=== PATIENT | female | born 1980 | race Caucasian/White ===

== ENCOUNTER 2017-08-06 08:57 | Emergency (ER) | payer OTHER ==
[~2017-08-06] VITALS: Ht 160 cm; Wt 71.5 kg
[~2017-08-06 08:57] MED LIST: CALC300T4 PO; LEVO500T10 PO; PERCOCET PO
[2017-08-06 08:59] VITALS: Ht 160 cm; Wt 71.5 kg
[2017-08-06] MEDS ORDERED: METHYLPRED. NA SUCC 1,000 MG in DEXTROSE 5% 50 ML IVPB ONE (11:00)
[2017-08-06] MEDS ORDERED: KETOROLAC 30 MG INJ IV STA (11:08)
--- NOTE | 2017-08-06 11:46 | ERD ---
ER Documentation Chief Complaint Chief Complaint numbness in bilat legs x 2 days, sent by PCP for steroid shot HX MS HPI 37-year-old female with a history of multiple sclerosis presents with numbness and tingling to her legs that started 2-3 days ago. Her neurologist who is Dr. Malik Rhoades has intermittent for Solu-Medrol, for an acute flare. The patient presents tingling to her left foot to her left knee, also presents with numbness to her groin. She states she also has photophobia, diffuse frontal headache. She has not had any vision changes, patient denies saddle anesthesia loss of bowel bladder function. He would like for her to have home care to get Solu-Medrol given a daily but was not able to arrange this given her limitations due to insurance. ROS All systems reviewed and are negative except as per history of present illness. Medications Home Meds Active Scripts Levofloxacin* (Levofloxacin*) 500 Mg Tablet, 500 MG PO DAILY for UTI, #7 TAB Prov:ANA CHRIS MD 09/06/16 Oxycodone Hcl/Acetaminophen (Percocet) 1 Tab Tab, 2 TAB PO Q4H Y for PAIN LEVEL 6-10, #30 TAB 0 Refills Prov:VADIM PEREYRA MD 07/16/16 Reported Medications Calcium Carbonate* (Tums X-Str) 300 Mg Tab.chew, 300 MG PO for HEARTBURN, TAB.CHEW 07/13/16 Allergies Allergies: Coded Allergies: No Known Allergy (Unverified , 08/06/17) PMhx/Soc Medical and Surgical Hx: pt denies Surgical Hx History of Surgery: No Anesthesia Reaction: No Hx Neurological Disorder: Yes (MS) Hx Respiratory Disorders: No Hx Cardiac Disorders: No Hx Psychiatric Problems: No Hx Miscellaneous Medical Probl: Yes Hx Alcohol Use: No Hx Substance Use: No Hx Tobacco Use: No Smoking Status: Never smoker Physical Exam Vitals Vital Signs Date Time Temp Pulse Resp B/P Pulse Ox O2 Delivery O2 Flow Rate FiO2 08/06/17 08:59 97.9 83 19 103/69 100 Physical Exam General: Well-developed, well-nourished. The patient appears in no acute distress. HEENT: Head is normocephalic, atraumatic. No scleral icterus. Neck: Supple. Nontender. Lungs: Clear to auscultation. Normal air movement. Heart: Regular rate and rhythm. S1 and S2 are normal. No murmurs, gallops, or rubs. Abdomen: Soft, nontender, nondistended. Bowel sounds are normoactive. Extremities: No clubbing or cyanosis. Normal pulses. Moving extremities x 4. No weakness. Neuro: M/S: Alert and oriented Face: EOMI, CN II-XII grossly intact Motor: Normal strength throughout Sensation: Normal sensation throughout Speech: Normal Cerebel: Normal coordination Normal gait Normal finger to nose DTR: 2+ and symmetric upper/lower extremities Skin: Normal turgor. No rash or lesions. Result Diagram: 08/06/17 1055 08/06/17 1055 Results 24 hrs Laboratory Tests Test 08/06/17 10:15 08/06/17 10:55 Urine Color YELLOW Urine Clarity CLEAR Urine pH 6.0 Urine Specific Kimberly 1.016 Urine Ketones NEGATIVEmg/dL Urine Nitrite NEGATIVEmg/dL Urine Bilirubin NEGATIVEmg/dL Urine Urobilinogen NEGATIVEmg/dL Urine Leukocyte Esterase TRACELeu/ul Urine Microscopic RBC 9/HPF Urine Microscopic WBC 1/HPF Urine Squamous Epithelial Cells FEW/HPF Urine Bacteria FEW/HPF Urine Mucus FEW/HPF Urine Hemoglobin 2+mg/dL Urine Glucose NEGATIVEmg/dL Urine Total Protein NEGATIVEmg/dl Urine Test NEGATIVE White Blood Count 6.410^3/ul Red Blood Count 4.2410^6/ul Hemoglobin 12.8g/dl Hematocrit 38.3% Mean Corpuscular Volume 90.3fl Mean Corpuscular Hemoglobin 30.2pg Mean Corpuscular Hemoglobin Concent 33.4g/dl Red Cell Distribution Width 13.0% Platelet Count 48215^3/UL Mean Platelet Volume 10.0fl Neutrophils % 58.2% Lymphocytes % 30.9% Monocytes % 6.8% Eosinophils % 3.3% Basophils % 0.6% Nucleated Red Blood Cells % 0.0/100WBC Neutrophils # 3.710^3/ul Lymphocytes # 2.010^3/ul Monocytes # 0.410^3/ul Eosinophils # 0.210^3/ul Basophils # 0.010^3/ul Nucleated Red Blood Cells # 0.010^3/ul Sodium Level 140mmol/L Potassium Level 4.0mmol/L Chloride Level 109mmol/L Carbon Dioxide Level 25mmol/L Anion Gap 10 Blood Urea Nitrogen 10mg/dl Creatinine 0.61mg/dl Glucose Level 81mg/dl Calcium Level 9.4mg/dl Current Medications Medications (Trade) Dose Ordered Sig/Norma Route PRN Reason Start Time Stop Time Status Last Admin Dose Admin Methylprednisolone Sodium Succinate/ Dextrose (Solu-Medrol/D5W) 50 ml @ 100 mls/hr ONCE ONCE IVPB 08/06/17 11:00 08/06/17 11:29 DC 08/06/17 11:14 Ketorolac Tromethamine (Toradol) 30 mg ONCE STAT IV 08/06/17 11:08 08/06/17 11:09 DC 08/06/17 11:14 Procedures/MDM Consult: I spoke with Dr. Malik Rhoades, he would like her to receive Solu-Medrol 1 g for an additional 4 days. She received Solu-Medrol intravenously in emergency department, received also basic labs. She is arranged with the office to get home care, if she does not patient may return to emergency room for continuing infusion. Medical decision makin-year-old with mild MS flare, complaining of tenderness, patient does not show any focal neurologic changes. She received Solu-Medrol as well as Toradol for headache, and is feeling better at this time. Patient will try to arrange home care with office, she does not she will return to the emergency department for Solu-Medrol 1 g to be given for additional days. Departure Diagnosis: Primary Impression: Numbness Additional Impression: Multiple sclerosis NELIA CORONA PA-C Aug 06, 2017 11:46
[2017-08-06 12:05] VITALS: BP 128/75; PULSE 78; RESP 19
== END 2017-08-06 12:05 | disposition home or self-care (01) ==
LOC: FTE 08:57
DX: R20.0 Anesthesia of skin (principal); G35 Multiple sclerosis
CPT/HCPCS: 36415; 80048; 81001; 84703; 85025; 96374; 96375; J1885; J2930; Z7502; Z7610

== ENCOUNTER 2017-08-07 19:30 | Emergency (ER) | payer SELFPAY ==
[~2017-08-07] VITALS: Ht 160 cm; Wt 72.8 kg
[2017-08-07 20:03] VITALS: Ht 160 cm; Wt 72.8 kg
== END 2017-08-07 22:02 | disposition left against medical advice (07) ==
LOC: FTE 19:30
DX: Z53.21 Procedure and treatment not carried out due to patient leaving prior to being seen by health care provider (principal)

== ENCOUNTER 2017-08-28 19:08 | Emergency (ER) | payer OTHER ==
[~2017-08-28] VITALS: Ht 162.6 cm; Wt 74.3 kg
[2017-08-28 19:14] VITALS: Ht 162.6 cm; Wt 74.3 kg
[2017-08-28] MEDS ORDERED: ACET325T33 PO (21:36)
--- NOTE | 2017-08-29 00:48 | ERD ---
ER Documentation Chief Complaint Chief Complaint hit her head on cabinet- open wound not bleeding; c/o dizzy; denies syncope HPI 37-year-old female complaining of head injury. Patient hit her head on dryer door earlier today and sustained a wound. She states that there was a lot of bleeding. Denies loss of consciousness. Had mild dizziness after incident however that has resolved. Denies severe headaches. Denies visual changes. Does not feel confused. No vomiting. ROS All systems reviewed and are negative except as per history of present illness. Medications Home Meds Active Scripts Acetaminophen* (Tylenol*) 325 Mg Tablet, 2 TAB PO Q6 Y for PAIN AND OR ELEVATED TEMP, #20 TAB Prov:CHARLENE PANG PA-C 08/28/17 Levofloxacin* (Levofloxacin*) 500 Mg Tablet, 500 MG PO DAILY for UTI, #7 TAB Prov:ANA CHRIS MD 09/06/16 Oxycodone Hcl/Acetaminophen (Percocet) 1 Tab Tab, 2 TAB PO Q4H Y for PAIN LEVEL 6-10, #30 TAB 0 Refills Prov:VADIM PEREYRA MD 07/16/16 Reported Medications Calcium Carbonate* (Tums X-Str) 300 Mg Tab.chew, 300 MG PO for HEARTBURN, TAB.CHEW 07/13/16 Allergies Allergies: Coded Allergies: No Known Allergy (Unverified , 08/06/17) PMhx/Soc Medical and Surgical Hx: pt denies Surgical Hx History of Surgery: No Anesthesia Reaction: No Hx Neurological Disorder: Yes (MS) Hx Respiratory Disorders: No Hx Cardiac Disorders: No Hx Psychiatric Problems: No Hx Miscellaneous Medical Probl: No Hx Alcohol Use: No Hx Substance Use: No Hx Tobacco Use: No Smoking Status: Never smoker Physical Exam Vitals Vital Signs Date Time Temp Pulse Resp B/P Pulse Ox O2 Delivery O2 Flow Rate FiO2 08/28/17 19:14 98.6 102 20 116/77 100 Physical Exam GENERAL: The patient is well-appearing, well-nourished, in no acute distress HEENT: Atraumatic. Conjunctivae are pink. Pupils equal, round, and reactive to light. There is no scleral icterus. Tympanic membranes clear bilaterally. Oropharynx clear. No nystagmus or photophobia. No depression of the skull. CHEST: Clear to auscultation bilaterally. There are no rales, wheezes or rhonchi. HEART: Regular rate and rhythm. No murmurs, clicks, rubs or gallops. No S3 or S4. EXTREMITIES: Equal pulses bilaterally. There is no peripheral clubbing, cyanosis or edema. No focal swelling or erythema. Full range of motion. Grossly neurovascularly intact. NEUROLOGIC: Alert and oriented. Cranial nerves II through XII intact. Motor strength in all 4 extremities with 5 out of 5 strength. Sensation grossly intact. Normal speech and gait. Babinski negative. DTR 2+ throughout. SKIN: Superficial abrasion to superior head. No laceration. No active bleeding. No foreign body. Procedures/MDM ER course: Site cleaned with copious amounts of normal saline. No Dermabond or staple required. MDM: 37-year-old female complaining of abrasion to head. I have low suspicion for intracranial hemorrhage or neurodeficit. I have low suspicion for skull fracture. Patient's exam is within normal limits. There is no indication for sutures or stable placement. Patient is told to clean site with soap and water gently. Patient is told symptoms change or worsen to return to the ER immediately. Patient is discharged with strict head precautions. Departure Diagnosis: Primary Impression: Acute head injury Condition: Stable Patient Instructions: HEAD INJURY, No Wake-Up (Adult) Referrals: NICOLE PUCKETT (PCP) Additional Instructions: FOLLOW UP WITH YOUR PRIMARY CARE PHYSICIAN TOMORROW.Return to this facility if you are not improving as expected. CHARLENE PANG PA-C Aug 29, 2017 00:48
== END 2017-08-28 22:03 | disposition home or self-care (01) ==
LOC: FTE 19:08
DX: S00.91XA Abrasion of unspecified part of head, initial encounter (principal); W22.03XA Walked into furniture, initial encounter; Y92.9 Unspecified place or not applicable
CPT/HCPCS: 99283

== ENCOUNTER 2018-03-14 19:58 | Emergency (ER) | END 2018-03-15 00:41 | disposition home or self-care (01) ==